=== PATIENT | male | born 1960 | race Hispanic/Latino ===

== ENCOUNTER 2017-11-24 17:25 | Emergency (ER) | payer BC ==
[2017-11-24] MEDS ORDERED: NA CHLORIDE 0.9% 1,000 ML ONE ×2 (18:34→21:25)
[2017-11-24 19:32] LABS: Absolute Lymphocytes (CBC) 0.8 K/uL (0.7-4.9); Absolute Monocytes 0.7 K/uL (0.1-1.3); Absolute Neutrophil 7.4 K/uL (1.8-8.0); Basophils % 0.4 % (0-1.3); Eosinophils % 5.6 % (0-4.4); Hematocrit 33.1 % (39.6-49.0); Lymphocytes % 8.8 % (15.3-44.8); MCH 24.3 pg (27.0-35.0); MCV 72.2 fL (80-100); MPV 8.3 fL (7.6-11.3); Monocytes % 7.1 % (3.3-12.3); RBC Red Blood Cell Count 4.59 M/uL (4.33-5.43)
[2017-11-24 19:36] LABS: Protime INR 1.4
[2017-11-24 19:43] LABS: ALT/SGPT 21 U/L (12-78); AST/SGOT 14 U/L (15-37); Albumin 1.9 g/dL (3.4-5.0); Alkaline Phosphatase 343 U/L (45-117); BUN Blood Urea Nitrogen 7 mg/dL (7-18); Bicarbonate 31 mmol/L (21-32); Bilirubin Direct 0.2 mg/dL (0-0.2); Bilirubin Total 0.5 mg/dL (0.2-1.0); Glucose Level 86 mg/dL (74-106); Lipase 76 U/L (73-393); Potassium 3.9 mmol/L (3.5-5.1); Protein, Total 6.9 g/dL (6.4-8.2); Sodium Level 136 mmol/L (136-145)
[2017-11-24 20:10] LABS: Urine Blood NEGATIVE (NEG); Urine Glucose NEGATIVE (NEG); Urine Protein NEGATIVE (NEG)
[2017-11-24 20:26] LABS: Urine Bacteria <20 /HPF (NONE SEEN); Urine Culture Reflex Order NOT NEEDED; Urine RBC NONE SEEN /HPF (NONE SEEN)
--- NOTE | 2017-11-24 20:39 | RAD REPORT ---
EXAM DESCRIPTION: CT - Abdomen Pelvis W Contrast - 11/24/2017 8:10 pm CLINICAL HISTORY: Abdominal pain. COMPARISON: None. TECHNIQUE: Computed axial tomography of the abdomen and pelvis was obtained. 100 cc Isovue-300 is ad ministered intravenously. Oral contrast was given. All CT scans are performed using dose optimization technique as appropriate and may include automated exposure control or mA/KV adjustment according to patient size. FINDINGS: Right lower lobe atelectasis is present The liver, spleen, pancreas, left adrenal and kidneys appear unremarkable. A 10 millimeter right adre nal nodule is seen. Postsurgical changes of a right hemicolectomy are present. The wall of the hepatic flexure and what a ppears to be the proximal right ascending colon is markedly thickened. Ill-defined fluid lies adjacen t to colon within at the lateral right abdomen. An air bubble is noted. Minimal amount ascites is pre sent within the pelvis A right lower quadrant ileostomy is seen. Small bowel caliber is normal. Ill-defined fluid is present within the subcutaneous tissues of the right lateral abdomen and right flank. The prostate gland is moderately to markedly enlarged. A prostatic nodule extrinsically compresses th e posterior bladder. Bilateral inguinal hernias contain fat. Air is present within the bladder. Ill-defined fluid is present within the anterior subcutaneous fat of the abdomen and pelvis near midl ine. An air bubble is noted. The most inferior slice demonstrates a 17 millimeter lesion with a sclerotic border within the proxim al left femur which is incompletely evaluated. IMPRESSION: Right rodney colectomy with right lower quadrant ileostomy. Marked thickening of the wall of the hepatic flexure of the colon and what appears be proximal right ascending colon having the appearance of a colitis Ill-defined fluid within the right abdomen could indicate infection or hematoma. A discrete abscess i s not seen. This could be monitored on follow-up examination. Air within the bladder presumably related to prior instrumentation. Infection can also result in this appearance 10 millimeter right adrenal nodule may represent an adenoma or metastasis. This could be further eval uated with MRI
--- NOTE | 2017-11-24 21:01 | ER ---
Nurse's Notes [facility] Name: Jj Allison Age: 57 yrs Sex: Male : 1960 Arrival Date: 11/24/2017 Time: 17:29 Bed 28 Private MD: Clinton Paulson T Diagnosis: Intraabdominal abscess;Wound dehiscence Presentation: 11/24 17:47 Presenting complaint: Patient states: Patient had a colon resection and colostomy done aj1 November 15. Today his started to have bleeding from the incision site, which has also started to open up. Patient reports redness around incision site. Bright red blood noted to drsg to incision site. They spoke with Dr. Cespedes at [facility] who performed the surgery and they were instructed to come to the emergency room. Transition of care: patient was not received from another setting of care. Onset of symptoms was November 24, 2017. Risk Assessment: Do you want to hurt yourself or someone else? Patient reports no desire to harm self or others. Initial Sepsis Screen: Does the patient meet any 2 criteria? HR > 90 bpm. No. Patient's initial sepsis screen is negative. Does the patient have a suspected source of infection? Yes: Skin breakdown/wound. Care prior to arrival: None. 17:47 Method Of Arrival: Ambulatory aj1 17:47 Acuity: PHOEBE 3 aj1 Triage Assessment: 17:55 General: Appears in no apparent distress. uncomfortable, Behavior is calm, cooperative, aj1 appropriate for age. Pain: Denies pain. Neuro: Level of Consciousness is awake, alert, obeys commands, Oriented to person, place, time, situation, Denies dizziness. Cardiovascular: Denies chest pain, Patient's skin is warm and dry. Respiratory: Airway is patent Respiratory effort is even, unlabored, Respiratory pattern is regular, symmetrical, Denies shortness of breath. GI: Reports nausea, Patient currently denies diarrhea, vomiting. Derm: Skin is pale. Historical: - Allergies: 17:55 No Known Allergies; aj1 - Home Meds: 17:55 Zofran (as hydrochloride) 4 mg Oral tab 1 tabs as needed [Active]; tramadol 50 mg Oral aj1 tab 1 tab every 6 hours [Active]; atorvastatin 40 mg oral tab 1 tab once daily [Active]; carvedilol 3.125 mg oral tab 1 tab 2 times per day [Active]; Insulin Glargine 30 units Sub-Q twice a day [Active]; - PMHx: 17:55 Diabetes - NIDDM; High Cholesterol; Hypertension; colon cancer; aj1 - PSHx: 17:55 colon resection; ileostomy; aj1 - Immunization history:: Flu vaccine is not up to date. - Social history:: Smoking status: Patient/guardian denies using tobacco. - Ebola Screening: : Patient denies travel to an Ebola-affected area in the 21 days before illness onset. Screenin:45 Abuse screen: Denies threats or abuse. Nutritional screening: No deficits noted. mb3 Tuberculosis screening: No symptoms or risk factors identified. Fall Risk No fall in past 12 months (0 pts). Secondary diagnosis (15 points) IV access (20 points). Ambulatory Aid- None/Bed Rest/Nurse Assist (0 pts). Gait- Impaired (20 pts.). Mental Status- Oriented to own ability (0 pts). Total Howell Fall Scale indicates High Risk Score (45 or more points). Fall prevention measures have been instituted. Side Rails Up X 2 Placed Close to Nursing Station Frequent Obs/Assessments Occuring Family Present and informed to notify staff if the need to leave the bedside As available patient and family educated on Fall Prevention Program and Strategies. Assessment: 18:46 General: Appears distressed, ill, Behavior is calm, cooperative, appropriate for age. mb3 Pain: Complains of pain in abdomen. Neuro: No deficits noted. Cardiovascular: No deficits noted. Heart tones present Capillary refill < 3 seconds Patient's skin is warm and dry. Respiratory: Airway is patent Respiratory effort is even, unlabored, Respiratory pattern is regular, symmetrical. GI: Colostomy site is reddened. Ostomy appliance is intact. surgical incision going down abdomen is inflamed and seeping bloody purulent drainage. Reports lower abdominal pain. : No signs and/or symptoms were reported regarding the genitourinary system. EENT: No signs and/or symptoms were reported regarding the EENT system. Derm: Wound noted epigastric area and umbilical area, incision from epigastic to umbilical area. colostomy at RLQ. 19:20 Reassessment: Patient and/or family updated on plan of care and expected duration. Pain mb3 level reassessed. Patient is alert, oriented x 3, equal unlabored respirations, skin warm/dry/pink. 20:24 Reassessment: Patient and/or family updated on plan of care and expected duration. Pain mb3 level reassessed. Patient is alert, oriented x 3, equal unlabored respirations, skin warm/dry/pink. 21:08 Reassessment: Patient and/or family updated on plan of care and expected duration. Pain mb3 level reassessed. Patient is alert, oriented x 3, equal unlabored respirations, skin warm/dry/pink. 22:24 Reassessment: No changes from previously documented assessment. Patient and/or family mb3 updated on plan of care and expected duration. Pain level reassessed. Patient is alert, oriented x 3, equal unlabored respirations, skin warm/dry/pink. 23:10 Reassessment: report called to Kyle Moore RN, sbar used and all questions answered. mb3 Vital Signs: 17:55 BP 123 / 75; Pulse 111; Resp 20; Temp 98.0(TE); Pulse Ox 95% on R/A; Weight 74.84 kg aj1 (R); Height 5 ft. 6 in. (167.64 cm); Pain 0/10; 19:18 BP 118 / 83; Pulse 102; Resp 20; Pulse Ox 95% on R/A; mb3 20:23 BP 136 / 71; Pulse 102; Resp 18; Pulse Ox 94% on R/A; mb3 20:39 Temp 98.9(O); mb3 21:07 BP 123 / 69; Pulse 100; Resp 18; Pulse Ox 95% on R/A; mb3 22:23 BP 105 / 65; Pulse 102; Resp 20; Pulse Ox 95% on R/A; mb3 17:55 Body Mass Index 26.63 (74.84 kg, 167.64 cm) aj1 ED Course: 17:29 Patient arrived in ED. sb2 17:29 Clinton Paulson MD is Private Physician. sb2 17:52 Triage completed. aj1 17:55 Arm band placed on Patient placed in an exam room. aj1 18:04 Carl Hatfield, YEN is Primary Nurse. mb3 18:08 Zak Negron NP is PHCP. pm1 18:08 Ivania Bolton MD is Attending Physician. pm1 18:38 Initial lab(s) drawn, by oh, sent to lab. cb2 18:42 Inserted saline lock: 18 gauge in right antecubital area, using aseptic technique. cb2 Blood collected. 20:05 Urine collected: clean catch specimen. cb2 20:10 CT completed. Patient moved to CT via stretcher. Patient moved back from CT. cw1 20:11 CT Abd/Pelvis - W/Contrast In Process Unspecified. EDMS 23:10 Patient has correct armband on for positive identification. mb3 23:10 No provider procedures requiring assistance completed. Patient transferred, IV remains mb3 in place. Administered Medications: 18:44 Drug: NS 0.9% 1000 ml Route: IV; Rate: 1000 ml; Site: left antecubital; mb3 22:07 Follow up: Response: No adverse reaction; IV Status: Completed infusion; IV Intake: mb3 1000ml 21:30 Drug: NS 0.9% 1000 ml Route: IV; Rate: 100 ml/hr; Site: left antecubital; rv 23:09 Follow up: Response: No adverse reaction; IV Status: Infusion continued upon transfer; mb3 IV Intake: 200ml 22:05 Drug: InvANZ 1 grams Route: IVPB; Infused Over: 30 mins; Site: left antecubital; mb3 22:50 Follow up: Response: No adverse reaction; IV Status: Completed infusion; IV Intake: mb3 100ml Intake: 22:07 IV: 1000ml; Total: 1000ml. mb3 22:50 IV: 100ml; Total: 1100ml. mb3 23:09 IV: 200ml; Total: 1300ml. mb3 Outcome: 21:00 ER care complete, transfer ordered by . pm1 23:09 Transferred to [facility], Transfer form completed. mb3 23:09 Condition: stable 23:09 Instructed on the need for transfer. 23:11 Patient left the ED. mb3 Addendum: 11/27/2017 11:19 Addendum: Culture Results: Positive wound culture. Phone call Attempt #1 Faxed to [facility] at [facility] [phone]. Signatures: Dispatcher [employer] EDMS Debbie Maher RN RN Ana Mckeon cw1 Zak Negron, GROCERY BUYER GROCERY BUYER pm1 Thelma Hoang RN RN hb Thee Yi Sheri sb2 Carl Hatfield, RN RN mb3 Zachary Pablo, RN RN rv
--- NOTE | 2017-11-24 21:01 | EDPHYS ---
Physician Documentation [facility] Name: Jj Allison Age: 57 yrs Sex: Male : 1960 Arrival Date: 11/24/2017 Time: 17:29 Bed 28 Private MD: Clinton Paulson T ED Physician Ivania Bolton HPI: 11/24 18:30 This 57 yrs old Male presents to ER via Ambulatory with complaints of Post pm1 Surgical Bleeding. 18:30 The patient presents with abdominal pain drainage and bleeding from surgical wound. pm1 Redness on the lower aspect of vertical incision and upper area of ostomy . Onset: The symptoms/episode began/occurred today. The symptoms do not radiate. Associated signs and symptoms: Pertinent positives: fever, chills, Pertinent negatives: nausea, vomiting, and diarrhea, chest pain, shortness of breath. The symptoms are described as achy. Modifying factors: The symptoms are alleviated by Tramadol resolved abdominal pain, the symptoms are aggravated by nothing. Severity of pain: in the emergency department the pain is a 0 / 10. The patient has been recently seen by a physician: Colectomy with ileostomy by Dr. Berrios on November 15 due to colon cancer. Historical: - Allergies: 17:55 No Known Allergies; aj1 - Home Meds: 17:55 Zofran (as hydrochloride) 4 mg Oral tab 1 tabs as needed [Active]; tramadol 50 mg Oral aj1 tab 1 tab every 6 hours [Active]; atorvastatin 40 mg oral tab 1 tab once daily [Active]; carvedilol 3.125 mg oral tab 1 tab 2 times per day [Active]; Insulin Glargine 30 units Sub-Q twice a day [Active]; - PMHx: 17:55 Diabetes - NIDDM; High Cholesterol; Hypertension; colon cancer; aj1 - PSHx: 17:55 colon resection; ileostomy; aj1 - Immunization history:: Flu vaccine is not up to date. - Social history:: Smoking status: Patient/guardian denies using tobacco. - Ebola Screening: : Patient denies travel to an Ebola-affected area in the 21 days before illness onset. ROS: 18:30 Eyes: Negative for injury, pain, redness, and discharge. pm1 18:30 ENT: Negative for injury, pain, and discharge, Neck: Negative for injury, pain, and swelling, Cardiovascular: Negative for chest pain, palpitations, and edema, Respiratory: Negative for shortness of breath, cough, wheezing, and pleuritic chest pain. 18:30 Back: Negative for injury and pain, : Negative for injury, bleeding, discharge, and swelling, MS/Extremity: Negative for injury and deformity. 18:30 Neuro: Negative for headache, weakness, numbness, tingling, and seizure. 18:30 Constitutional: Positive for chills, fever. 18:30 Abdomen/GI: Positive for abdominal pain, Negative for nausea, vomiting, and diarrhea. 18:30 Skin: Positive for of the abdomen, redness and drainage from vertical midline surgical wound and redness around ileostomy. Exam: 18:30 Constitutional: This is a well developed, well nourished patient who is awake, alert, pm1 and in no acute distress. Head/Face: Normocephalic, atraumatic. Neck: Trachea midline, no thyromegaly or masses palpated, and no cervical lymphadenopathy. Supple, full range of motion without nuchal rigidity, or vertebral point tenderness. No Meningismus. Chest/axilla: Normal chest wall appearance and motion. Nontender with no deformity. No lesions are appreciated. Cardiovascular: Regular rate and rhythm with a normal S1 and S2. No gallops, murmurs, or rubs. No pulse deficits. Respiratory: Lungs have equal breath sounds bilaterally, clear to auscultation and percussion. No rales, rhonchi or wheezes noted. No increased work of breathing, no retractions or nasal flaring. 18:30 Back: No spinal tenderness. No costovertebral tenderness. Full range of motion. Skin: Warm, dry with normal turgor. Normal color with no rashes, no lesions, and no evidence of cellulitis. MS/ Extremity: Pulses equal, no cyanosis. Neurovascular intact. Full, normal range of motion. 18:30 Abdomen/GI: Inspection: Right lower quadrant ostomy. Prolapsed stoma 4 cm in length, Bowel sounds: normal, Palpation: soft, mild abdominal tenderness, midline abdomen: area of wound dehiscence . 18:30 Neuro: Orientation: is normal, Motor: is normal, moves all fours. Vital Signs: 17:55 BP 123 / 75; Pulse 111; Resp 20; Temp 98.0(TE); Pulse Ox 95% on R/A; Weight 74.84 kg aj1 (R); Height 5 ft. 6 in. (167.64 cm); Pain 0/10; 19:18 BP 118 / 83; Pulse 102; Resp 20; Pulse Ox 95% on R/A; mb3 20:23 BP 136 / 71; Pulse 102; Resp 18; Pulse Ox 94% on R/A; mb3 20:39 Temp 98.9(O); mb3 21:07 BP 123 / 69; Pulse 100; Resp 18; Pulse Ox 95% on R/A; mb3 22:23 BP 105 / 65; Pulse 102; Resp 20; Pulse Ox 95% on R/A; mb3 17:55 Body Mass Index 26.63 (74.84 kg, 167.64 cm) aj1 MDM: 18:09 Patient medically screened. pm1 20:57 Data reviewed: vital signs. Data interpreted: Pulse oximetry: on room air is 95 %. pm1 Interpretation: normal. Counseling: I had a detailed discussion with the patient and/or guardian regarding: the historical points, exam findings, and any diagnostic results supporting the discharge/admit diagnosis, lab results, radiology results, the need to transfer to another facility, for higher level of care. 21:14 Physician consultation: Covering for Dr. Yash Maher was called at 21:05, was pm1 contacted at 21:13, regarding regarding transfer, patient's condition, would like medications started, Invanz 1 gm IV, Will contact Dr. Berrios to determine where he would like the patient transferred. Will call back. 21:23 Physician consultation: Doroteo Berrios would like the patient transferred to pm[facility]. Admit the patient to himself or Dr. Berrios. If admitted to himself he will transfer care in the AM. 11/24 18:21 Order name: Basic Metabolic Panel; Complete Time: 19:45 pm1 11/24 18:21 Order name: CBC with Diff; Complete Time: 19:45 pm1 11/24 18:21 Order name: Creatinine for Radiology; Complete Time: 19:45 pm1 11/24 18:21 Order name: Hepatic Function; Complete Time: 19:45 pm1 11/24 18:21 Order name: Lipase; Complete Time: 19:45 pm1 11/24 18:21 Order name: Urine Microscopic Only; Complete Time: 20:37 pm1 11/24 18:21 Order name: Lactate; Complete Time: 19:17 pm1 11/24 18:21 Order name: Procalcitonin; Complete Time: 20:18 pm1 11/24 18:21 Order name: Blood Culture Adult (2) pm1 11/24 18:22 Order name: PT-INR; Complete Time: 20:18 pm1 11/24 18:22 Order name: Ptt, Activated; Complete Time: 20:18 pm1 11/24 18:24 Order name: Wound Culture pm11/24 20:06 Order name: Urine Dipstick--Ancillary (enter results) ms 11/24 20:06 Order name: Urine Dipstick-Ancillary; Complete Time: 20:18 EDMS 11/24 18:21 Order name: IV Saline Lock; Complete Time: 18:43 pm1 11/24 18:21 Order name: Labs collected and sent; Complete Time: 18:43 pm1 11/24 18:21 Order name: Urine Dipstick-Ancillary (obtain specimen); Complete Time: 20:47 pm1 11/24 18:21 Order name: CT Abd/Pelvis - W/Contrast; Complete Time: 20:45 pm1 Administered Medications: 18:44 Drug: NS 0.9% 1000 ml Route: IV; Rate: 1000 ml; Site: left antecubital; mb3 22:07 Follow up: Response: No adverse reaction; IV Status: Completed infusion; IV Intake: mb3 1000ml 21:30 Drug: NS 0.9% 1000 ml Route: IV; Rate: 100 ml/hr; Site: left antecubital; rv 23:09 Follow up: Response: No adverse reaction; IV Status: Infusion continued upon transfer; mb3 IV Intake: 200ml 22:05 Drug: InvANZ 1 grams Route: IVPB; Infused Over: 30 mins; Site: left antecubital; mb3 22:50 Follow up: Response: No adverse reaction; IV Status: Completed infusion; IV Intake: mb3 100ml Disposition: 11/25 20:23 Co-signature as Attending Physician, Ivania Bolton MD. ma2 Disposition: 11/24/17 21:00 Transfer ordered to [facility]. Diagnosis are Intraabdominal abscess, Wound dehiscence. - Reason for transfer: Higher level of care. - Accepting physician is Dr. Maher. - Condition is Stable. - Problem is new. - Symptoms have improved. Signatures: Dispatcher [employer] EDDebbie Brown, RN RN aj1 Zak Negron, ROVING OR YARN COLOR CHECKER ROVING OR YARN COLOR CHECKER pm1 Ivania Bolton MD MD ma2 Carl Hatfield, YEN RN mb3 Zachary Pablo RN RN rv Corrections: (The following items were deleted from the chart) 11/24 21:02 21:00 11/24/2017 21:00 Transfer ordered to [facility]. Diagnosis is pm1 Intraabdominal abscess. Reason for transfer: Higher level of care. Accepting physician is Dr. Maher. Condition is Stable. Problem is new. Symptoms have improved. pm1 23:11 21:02 11/24/2017 21:00 Transfer ordered to [facility]. Diagnosis is mb3 Intraabdominal abscess; Wound dehiscence. Reason for transfer: Higher level of care. Accepting physician is Dr. Maher. Condition is Stable. Problem is new. Symptoms have improved. pm1
[2017-11-24] MEDS ORDERED: ERTAPENEM SODIUM 1 GM VIAL ONE (21:55)
[2017-11-24] MEDS ORDERED: NA CHLORIDE 0.9% 100 ML IV ONE (22:01)
== END 2017-11-24 23:11 | disposition short-term general hospital (02) ==
LOC: ER 17:25
DX: L02.211 Cutaneous abscess of abdominal wall (principal); T81.31XA Disruption of external operation (surgical) wound, not elsewhere classified, initial encounter; Z93.2 Ileostomy status; Z85.038 Personal history of other malignant neoplasm of large intestine; I10 Essential (primary) hypertension; E11.9 Type 2 diabetes mellitus without complications; Z79.4 Long term (current) use of insulin
CPT/HCPCS: 36415; 74177; 80048; 80076; 81003; 81015; 82962; 83605; 83690; 84145; 85025; 85610; 85730; 87040; 87070; 87077; 87186; 87205; 96361; 96365; 99285; J1335; J7030; Q9967